=== PATIENT | female | born 1980 | race African-American/Black ===

== ENCOUNTER 2017-04-08 23:19 | Emergency (ER) | payer BC ==
[~2017-04-08] VITALS: Ht 167.6 cm; Wt 80.1 kg
[~2017-04-08 23:19] MED LIST: AMLO10TA2 PO; BUSPAR PO; FLUO20CA36 PO; OMEP20CA9 PO; PRENTAB26 PO
[2017-04-08 23:35] VITALS: O2SAT 93
[2017-04-08 23:52] LABS: BASO % 0.8 %; BASO ABS # 0.06 K/uL (0-0.2); COMPLETE YES; EOS % 2.8 %; HEMATOCRIT 41.2 % (37-47); IG% 0.3 %; LYMPH % 32.3 %; LYMPH ABS # 2.57 K/uL (1.2-3.4); MEAN CELL VOLUME 97.2 fL (80-100); MEAN CORPUSCULAR HEMOGLOBIN 33.3 pg (25-34); MEAN CORPUSCULAR HGB CONC 34.2 g/dl (32-36); MONO % 7.3 %; NEUT % 56.5 %; PLATELET COUNT 194 K/uL (130-400); RED BLOOD COUNT 4.24 M/uL (4.2-5.4); WHITE BLOOD COUNT 7.95 K/uL (4.8-10.8)
--- NOTE | 2017-04-08 23:58 | EMERGENCY ROOM VISIT NOTE ---
History Report prepared by Nikkie: Dread Steinberg Under the Supervision of: Dr. Pk Polanco M.D. First contact with patient: 23:18 Chief Complaint: ALCOHOL OVERDOSE Stated Complaint: UNCONSCIOUS ALCOHOL OVERDOSE History of Present Illness The patient is a 36 year old female who presents to the Emergency Room for an alcohol overdose occurring prior to arrival. Per the EMS, the patient was found unresponsive outside on the ground. The patient has slurred speech, and she did not where she was or what year, month, or day it was. History is limited secondary to intoxication. Source of History: EMS History Limited By: intoxication Onset: prior to arrival Position: other (global) Quality: other (alcohol overdose) Review of Systems HPI is limited secondary to intoxication. Past Medical & Surgical Medical Problems: (1) Hypertension Surgical Problems: (1) Previous section Social History Smoking Status: Never Smoker Marital Status: Occupation Status: employed Current/Historical Medications Scheduled Amlodipine Besylate (Norvasc), 10 MG PO DAILY Buspirone Hcl (Buspirone Hcl), 1 TAB PO BID Fluoxetine (Prozac), 20 MG PO DAILY Omeprazole (Prilosec), 20 MG PO DAILY Allergies Coded Allergies: No Known Allergies (Verified , 04/09/17) Physical Exam Vital Signs Date Time Temp Pulse Resp B/P (MAP) Pulse Ox O2 Delivery O2 Flow Rate FiO2 04/09/17 06:30 83 129/85 98 04/09/17 06:07 103 04/09/17 05:02 83 92/56 93 Room Air 04/09/17 04:02 75 18 113/73 91 Room Air 04/09/17 03:15 75 14 97/70 93 Room Air 04/09/17 02:35 78 20 103/58 98 Room Air 04/09/17 02:33 79 04/09/17 01:38 77 17 101/66 93 Room Air 04/09/17 00:24 36.9 71 15 122/85 89 Room Air 04/09/17 00:22 Room Air 04/08/17 23:35 93 Nasal Cannula 2.0 04/08/17 23:31 47 Physical Exam Vital signs reviewed. General: Odor of EtOH in the breath, disheveled 36-year-old female. No signs of trauma. HEENT: Mild scleral injection bilaterally, PERRLA, neck supple, dry mucous membranes. Cardiovascular: Regular rate and rhythm, no extra sounds. Pulmonary: Clear to auscultation bilaterally, normal work of breathing. Abdomen: Soft, nontender, nondistended, positive bowel sounds. Musculoskeletal: Upper and lower extremities atraumatic, no peripheral edema Skin: Warm, dry, no rash. Atraumatic. Neurologic: Patient is currently nonverbal. Medical Decision & Procedures ER Provider Diagnostic Interpretation: CT results as stated below per my review and radiologist interpretation: CT HEAD: No acute intracranial hemorrhage. No evidence of intracranial mass, extra-axial fluid collection, or acute territorial infarct. No hydrocephalus. Retention cyst versus polyp right maxillary sinus Laboratory Results 04/08/17 23:31 Red Blood Count 4.24, Mean Corpuscular Volume 97.2, Mean Corpuscular Hemoglobin 33.3, Mean Corpuscular Hemoglobin Concent 34.2, Mean Platelet Volume 13.0, Neutrophils (%) (Auto) 56.5, Lymphocytes (%) (Auto) 32.3, Monocytes (%) (Auto) 7.3, Eosinophils (%) (Auto) 2.8, Basophils (%) (Auto) 0.8, Neutrophils # (Auto) 4.50, Lymphocytes # (Auto) 2.57, Monocytes # (Auto) 0.58, Eosinophils # (Auto) 0.22, Basophils # (Auto) 0.06 04/08/17 23:31 Test 04/08/17 23:20 04/08/17 23:31 04/09/17 03:58 White Blood Count 7.95 K/uL (4.8-10.8) Red Blood Count 4.24 M/uL (4.2-5.4) Hemoglobin 14.1 g/dL (12.0-16.0) Hematocrit 41.2 % (37-47) Mean Corpuscular Volume 97.2 fL (80-100) Mean Corpuscular Hemoglobin 33.3 pg (25-34) Mean Corpuscular Hemoglobin Concent 34.2 g/dl (32-36) Platelet Count 194 K/uL (130-400) Mean Platelet Volume 13.0 fL (7.4-10.4) Neutrophils (%) (Auto) 56.5 % Lymphocytes (%) (Auto) 32.3 % Monocytes (%) (Auto) 7.3 % Eosinophils (%) (Auto) 2.8 % Basophils (%) (Auto) 0.8 % Neutrophils # (Auto) 4.50 K/uL (1.4-6.5) Lymphocytes # (Auto) 2.57 K/uL (1.2-3.4) Monocytes # (Auto) 0.58 K/uL (0.11-0.59) Eosinophils # (Auto) 0.22 K/uL (0-0.5) Basophils # (Auto) 0.06 K/uL (0-0.2) RDW Standard Deviation 46.1 fL (36.4-46.3) RDW Coefficient of Variation 13.0 % (11.5-14.5) Immature Granulocyte % (Auto) 0.3 % Immature Granulocyte # (Auto) 0.02 K/uL (0.00-0.02) Anion Gap 5.0 mmol/L (3-11) Estimated GFR () 90.4 Estimated GFR (Non- 78.0 BUN/Creatinine Ratio 9.1 (10-20) Calcium Level 8.2 mg/dl (8.5-10.1) Human Chorionic Gonadotropin, Qual NEG (NEG) Ethyl Alcohol mg/dL 311.0 mg/dl (0-3) Bedside Glucose 80 mg/dl (70-90) Labs reviewed by ED physician. ED Course 2318: Past medical records reviewed. The patient was evaluated in room C6. A complete history and physical examination was performed. 0318: I reevaluated the patient, and she was resting. 0604: I reevaluated the patient, and she states that she does not want to go to rehab. Medical Decision Differential diagnosis: Etiologies such as alcohol intoxication, toxicologic, infection, hypoglycemia, electrolyte abnormalities, cardiac sources, intracerebral event, neurologic, as well as others were entertained. This is a 36-year-old female who presents to the emergency department clinically intoxicated. Patient was found outside passed out. Because she was originally nonresponsive the patient was sent for CAT scan of her head. She is placed on the monitor in the prone position an alcohol level was drawn. Aspiration precautions were taken. After sometime the patient's alcohol level did clear. She was again reexamined by me in the morning. The patient is requesting rehabilitation stay therefore I contacted case management to discuss this with the patient. She denies being suicidal or homicidal I feel she can be safely discharged home. Medication Reconcilliation Current Medication List: was personally reviewed by me Blood Pressure Screening Patient's blood pressure: Normal blood pressure Impression Primary Impression: Alcohol intoxication Scribe Attestation The scribe's documentation has been prepared under my direction and personally reviewed by me in its entirety. I confirm that the note above accurately reflects all work, treatment, procedures, and medical decision making performed by me. Departure Information Dispostion Home / Self-Care Referrals No Doctor, Assigned (PCP) Forms HOME CARE DOCUMENTATION FORM, IMPORTANT VISIT INFORMATION Patient Instructions Alcohol Intoxication - [facility], My [facility] Additional Instructions NORA = .311 Radiographs and CTs will be reread by a radiologist in the morning. You have been examined and treated today on an emergency basis only. This is not a substitute for, or an effort to provide, complete comprehensive medical care. It is impossible to recognize and treat all injuries or illnesses in a single emergency department visit. It is therefore important that you follow up closely with your PCP. Call as soon as possible for an appointment. Thank you for your time and consideration. I look forward to speaking with you again soon. Please don't hesitate to call us if you have any questions. Problem Qualifiers Primary Impression: Alcohol intoxication Complication of substance-induced condition: uncomplicated Qualified Codes: F10.920 - Alcohol use, unspecified with intoxication, uncomplicated
[2017-04-09 00:11] LABS: BLOOD UREA NITROGEN 8 mg/dl (7-18); BUN/CREATININE RATIO 9.1 (10-20); CALCIUM 8.2 mg/dl (8.5-10.1); CARBON DIOXIDE 30 mmol/L (21-32); CHLORIDE 111 mmol/L (98-107); CREATININE 0.93 mg/dl (0.60-1.20); GLUCOSE 82 mg/dl (70-99); POTASSIUM 3.2 mmol/L (3.5-5.1); SODIUM 146 mmol/L (136-145)
[2017-04-09 00:16] LABS: PREG INTERNAL NEGATIVE QC NEG CLEAR BACKGROUND; PREG INTERNAL POSITIVE QC POS CONTROL LINE
[2017-04-09 00:24] VITALS: TEMP 36.9; Ht 167.6 cm; Wt 80.1 kg
[2017-04-09] MEDS ORDERED: AMLO10TA2 PO (06:22)
[2017-04-09] MEDS ORDERED: BUSP5TAB59 PO (06:22)
[2017-04-09] MEDS ORDERED: PRLSR20 PO (06:22)
[2017-04-09] MEDS ORDERED: FLUO20CA35 PO (06:22)
--- NOTE | 2017-04-09 06:51 | DIAGNOSTIC IMAGING REPORT ---
HEAD CT NONCONTRAST CT DOSE: 614.27 mGy.cm HISTORY: Pt c/o unresponsiveness TECHNIQUE: Multiaxial CT images of the head were performed without the use of intravenous contrast. Automated exposure control was utilized for this study. A dose lowering technique was utilized adhering to the principles of ALARA. Comparison: None. Findings: Retention cyst within the right maxillary sinus. The mastoid air cells are clear. The calvarium and skull base are intact. The ventricles and sulci are within normal limits. There is no mass, hematoma, midline shift, or acute infarct. Impression: No acute intracranial abnormality. Electronically signed by: Cole Haas M.D. 04/09/2017 6:50 AM Dictated Date/Time: 04/09/2017 6:49 AM
[2017-04-09 07:40] VITALS: BP 109/64; PULSE 81; O2SAT 97
== END 2017-04-09 07:53 | disposition home or self-care (01) ==
LOC: EDBD 23:19 → C.EDC 23:23 → C.EDA 04-09 07:53
DX: F10.920 Alcohol use, unspecified with intoxication, uncomplicated (principal); I10 Essential (primary) hypertension; Z79.899 Other long term (current) drug therapy